=== PATIENT | female | born 1955 | race Caucasian/White ===

== ENCOUNTER 2022-05-07 11:07 | Emergency (ER) | payer MEDICARE ==
[~2022-05-07] VITALS: Ht 165.1 cm; Wt 121.6 kg
[~2022-05-07 11:07] MED LIST: AMARYL2 MG PO; GLUCOPHAGE XR500 MG PO; NORVASC5 MG PO
[2022-05-07] MEDS ORDERED: PERCOCET 7.5-31 EACH PO (14:45)
== END 2022-05-07 14:55 | disposition home or self-care (01) ==
LOC: ED 11:07
DX: M62.838 Other muscle spasm (principal); I11.9 Hypertensive heart disease without heart failure; E11.9 Type 2 diabetes mellitus without complications; Z86.73 Personal history of transient ischemic attack (TIA), and cerebral infarction without residual deficits; Z88.8 Allergy status to other drugs, medicaments and biological substances; Z88.5 Allergy status to narcotic agent; Z79.84 Long term (current) use of oral hypoglycemic drugs; Z79.899 Other long term (current) drug therapy
CPT/HCPCS: 96372; 99283; J1885

== ENCOUNTER 2025-01-05 15:26 | Emergency (ER) | payer MEDICARE ==
[~2025-01-05] VITALS: Ht 165.1 cm; Wt 124.3 kg
[~2025-01-05 15:26] MED LIST changes: +PERCOCET 7.5-31 EACH PO
[2025-01-05] MEDS ORDERED: METOPROLOL SUCC50 MG PO (16:02)
[2025-01-05] MEDS ORDERED: AMLODIPINE BESY10 MG PO (16:02)
[2025-01-05] MEDS ORDERED: SERTRALINE HCL25 MG PO (16:02)
[2025-01-05] MEDS ORDERED: LEVOTHYROXINE25 MCG PO (16:03)
[2025-01-05 17:09] LABS: BILIRUBIN, URINE NEGATIVE (negative); BLOOD/HGB, URINE NEGATIVE (Negative); KETONE, URINE TRACE (Negative); LEUK ESTERASE, URINE NEGATIVE (negative); NITRITE, URINE NEGATIVE (negative)
[2025-01-05 18:59] LABS: BASOPHILS 0.2 % (0.1-1.2); EOSINOPHILS 0.5 % (0.7-5.8); HEMATOCRIT 41.5 % (34.1-44.9); HEMOGLOBIN 14.1 g/dL (11.2-15.7); LYMPHOCYTES 29.5 % (19.3-51.7); MCH 29.7 PG (25.6-32.2); MCV 87.4 fL (79.4-94.8); MONOCYTES 17.9 % (4.7-12.5); PLATELET COUNT 79 K/uL (182-369); RBC 4.75 M/uL (3.93-5.22)
[2025-01-05 19:10] LABS: INR 1.03 (0.80-1.30); PARTIAL THROMBOPLASTIN TIME 26.1 Sec (22.9-41.3); PROTIME 12.8 Sec (11.2-14.2)
[2025-01-05 19:14] LABS: ALBUMIN 3.9 g/dL (3.4-5.0); ALBUMIN/GLOBULIN RATIO 1.18 (1.1-2.4); ANION GAP 13.8 (7-21); BILIRUBIN, TOTAL 0.6 mg/dL (0.2-1.0); BUN/CREATININE RATIO 8.51 (6.0-28.6); CALCIUM 8.5 mg/dL (8.5-10.1); CREATININE, SERUM 0.94 mg/dL (0.55-1.02); POTASSIUM 3.8 mmol/L (3.5-5.1); PROTEIN, TOTAL 7.2 g/dL (6.4-8.2)
[2025-01-05] MEDS ORDERED: MECLIZINE HCL25 MG PO (21:23)
[2025-01-05 21:30] VITALS: BP 131/66
--- NOTE | 2025-01-07 12:14 | EKG ---
[facility] [address] [facility] [place], [place] [address] Signed Normal sinus rhythm Normal ECG Confirmed by Sid Velázquez DO ([id number]) on 01/07/2025 12:14:00 PM Electronically Signed By: SID VELÁZQUEZ DO 01/07/25 1214 PATIENT NAME: TIFFANIE VICKERS ANNETTE Electrocardiogram DATE OF : 55 PHYSICIAN: SID VELÁZQUEZ DO REPORT #: [id number] REPORT IS CONFIDENTIAL AND NOT TO BE RELEASED WITHOUT AUTHORIZATION
== END 2025-01-05 21:30 | disposition home or self-care (01) ==
LOC: ED 15:26
PROVIDERS: Emergency Medicine
DX: R42 Dizziness and giddiness (principal); I10 Essential (primary) hypertension; E11.9 Type 2 diabetes mellitus without complications; Z79.899 Other long term (current) drug therapy; Z88.5 Allergy status to narcotic agent; Z88.8 Allergy status to other drugs, medicaments and biological substances; Z86.73 Personal history of transient ischemic attack (TIA), and cerebral infarction without residual deficits
CPT/HCPCS: 36415; 70450; 80053; 81003; 85025; 85610; 85730; 93005; 93010; 99284